=== PATIENT | female | born 1925 | race Caucasian/White ===

== ENCOUNTER 2016-07-30 13:49 | Day surgery (SDC) | payer OTHER, BC ==
[~2016-07-30] VITALS: Ht 154.9 cm; Wt 59.9 kg
[~2016-07-30 13:49] MED LIST: ADVAIR 250/501 DISK IH; AUGMENTIN875 MG PO; BACTRIM,SEPT1 TABLET PO; CHOLESTEROL MA600 MG PO; CITRACAL D + H1 EACH PO; COLACE100 MG PO; DILAUDID4 MG PO; DILTIAZEM 24HR240 MG PO; FLAGYL500 MG PO; FLECAINIDE ACE100 MG PO; HYDROCODON-ACE1 EAC7 PO; HYZAAR 100-21 TABLET PO; HYZAAR 50-121 TABLET PO; K-TAB10 MEQ PO; KLOR-CON M2020 MEQ PO; LEVOTHYROXINE112 MCG PO; LYRICA50 MG PO; OMEPRAZOLE40 M1 PO; PAXIL20 MG PO; PERCOCET 5/31 TABLET PO; PREDNISONE20 MG PO; PRILOSEC40 MG PO; PROLIA60 MG/1 ML SC; PROVENTIL HFA6.7 GM IH; TRUSOPT5 ML BOTH EYES; VITAMIN D2000 UNIT PO; ZANTAC150 MG PO; ZANTAC75 M1 PO; [UNRECOGNIZED DRUG - CODE] PO
== END 2016-07-30 16:10 | disposition home or self-care (01) ==
LOC: PAIN 13:49 → SDC 14:15 → PAIN 14:15
DX: M54.16 Radiculopathy, lumbar region (principal); M47.896 Other spondylosis, lumbar region; I10 Essential (primary) hypertension; J45.909 Unspecified asthma, uncomplicated; E03.9 Hypothyroidism, unspecified; K21.9 Gastro-esophageal reflux disease without esophagitis; F41.1 Generalized anxiety disorder
CPT/HCPCS: J1030; J1100; J3010

== ENCOUNTER 2016-08-15 08:29 | Day surgery (SDC) | payer OTHER, BC ==
[~2016-08-15] VITALS: Ht 154.9 cm; Wt 59.9 kg
[~2016-08-15 08:29] MED LIST changes: +BREO ELLIPTA 21 EACH IH
== END 2016-08-15 10:23 | disposition home or self-care (01) ==
LOC: PAIN 08:29 → SDC 08:45 → PAIN 10:23
PROC: 3E0S33Z Introduction of Anti-inflammatory into Epidural Space, Percutaneous Approach (ICD-10-PCS; principal; 2016-08-15)
DX: M54.16 Radiculopathy, lumbar region (principal); F41.9 Anxiety disorder, unspecified; M47.816 Spondylosis without myelopathy or radiculopathy, lumbar region; M48.06 Spinal stenosis, lumbar region; M54.2 Cervicalgia; M41.9 Scoliosis, unspecified; I48.91 Unspecified atrial fibrillation; K21.9 Gastro-esophageal reflux disease without esophagitis; I10 Essential (primary) hypertension; M81.0 Age-related osteoporosis without current pathological fracture; J45.909 Unspecified asthma, uncomplicated; Z88.0 Allergy status to penicillin; Z88.5 Allergy status to narcotic agent
CPT/HCPCS: J1100; J2250; J3010

== ENCOUNTER 2016-10-15 13:42 | Day surgery (SDC) | payer OTHER, BC ==
[~2016-10-15] VITALS: Ht 152.4 cm; Wt 58.2 kg
== END 2016-10-15 15:00 | disposition home or self-care (01) ==
LOC: PAIN 13:42 → SDC 14:30 → PAIN 15:00
PROC: 3E0S33Z Introduction of Anti-inflammatory into Epidural Space, Percutaneous Approach (ICD-10-PCS; principal; 2016-10-15)
DX: M47.26 Other spondylosis with radiculopathy, lumbar region (principal); F41.9 Anxiety disorder, unspecified; M51.36 Other intervertebral disc degeneration, lumbar region; M48.06 Spinal stenosis, lumbar region; I10 Essential (primary) hypertension; E78.5 Hyperlipidemia, unspecified; E03.9 Hypothyroidism, unspecified; J45.909 Unspecified asthma, uncomplicated; K21.9 Gastro-esophageal reflux disease without esophagitis; Z88.0 Allergy status to penicillin; Z88.5 Allergy status to narcotic agent
CPT/HCPCS: J1100